=== PATIENT | male | born 1960 | race Caucasian/White ===

== ENCOUNTER 2018-08-18 19:23 | Emergency (ER) | payer BC ==
[~2018-08-18] VITALS: Ht 170.2 cm; Wt 90.7 kg
[~2018-08-18 19:23] MED LIST: Adult Low Dose81 MG PO; HYDCHL12.5 PO; METO25ER PO; PRAV20 PO
[2018-08-18] MEDS ORDERED: CYAN500 PO (20:30)
== END 2018-08-18 21:21 | disposition home or self-care (01) ==
LOC: ER 19:23
DX: S71.112A Laceration without foreign body, left thigh, initial encounter (principal); Z88.0 Allergy status to penicillin; Z79.899 Other long term (current) drug therapy; W22.8XXA Striking against or struck by other objects, initial encounter
CPT/HCPCS: 12032; 90471; 90714; 99282-25

== ENCOUNTER → 2018-11-08 | Outpatient (CLI) | payer BC ==
[~2018-11-08] MED LIST changes: +CYAN500 PO
== END | disposition home or self-care (01) ==
LOC: LAB SHORT 10:40 → LAB 10:40
DX: K30 Functional dyspepsia (principal)
CPT/HCPCS: 87338

== ENCOUNTER → 2019-07-06 | Outpatient (CLI) | payer BC | END | disposition home or self-care (01) | LOC: LAB SHORT 05:05 → LAB 05:05 → LAB FUT 07-05 17:10 | DX: R10.13 Epigastric pain (principal); R35.0 Frequency of micturition | CPT/HCPCS: 87338 ==

== ENCOUNTER 2021-01-07 15:42 | Day surgery (SDC) | payer BC ==
--- NOTE | 2021-01-07 17:18 | NUR ---
PT HAS NO ADVERSE SIGNS AFTER INFUSION .....
--- NOTE | 2021-01-07 18:02 | NUR ---
COMBINED NOTES: 1744 PT DOING VERY WELL, STATES THAT HE FEELS NO DIFFERENT THEN WHEN HE WALKED IN, PT HAD/HAS SLIGHT COUGH WHEN HE CAME IN. VSS, BIOX AT 93 -95% PT WAS GIVEN PEPSI, CRANBERRY JUICE AND NOW WATER
--- NOTE | 2021-01-07 18:06 | NUR ---
180: PT DRINKING WATER, NO S/S OF ADVERSE REACTION. PT CONTINUES TO HAVE SLIGHT COUGH, STATES HE FEELS FINE
--- NOTE | 2021-01-07 18:18 | NUR ---
PTS VSS, BIOXING AT 97%ON RA, PT DOES STATE THAT HE FEELS A LITTLE "TINGLING" IN HIS ARMS. PT AMBULATING TO BATHROOM
--- NOTE | 2021-01-07 18:31 | NUR ---
183: AMBULATED PT TO HIS VEHICLE. NO S/S OF ADVERSE. PT STATES THE TINGLING HAS WENT AWAY, AND THINKING HE MIGHT OF JUST BEEN COLD ENCOURAGED PT TO CALL 911 FOR ANY S/S OF INCREASED SOB, OR ANY OTHER ADVERSE REACTION. PT IS [place] AND [place]. HE STATED HE WOULD
== END 2021-01-07 23:34 | disposition home or self-care (01) ==
LOC: ATC 15:42
DX: U07.1 COVID-19 (principal); I10 Essential (primary) hypertension; E78.5 Hyperlipidemia, unspecified; I42.2 Other hypertrophic cardiomyopathy; E66.9 Obesity, unspecified; G47.33 Obstructive sleep apnea (adult) (pediatric); Z88.0 Allergy status to penicillin; Z99.89 Dependence on other enabling machines and devices
CPT/HCPCS: 96365; Q0243

== ENCOUNTER 2021-01-17 23:13 | Inpatient (IN) | payer BC ==
[~2021-01-17] VITALS: Ht 152.4 cm; Wt 98.4 kg
[2021-01-17 23:43] LABS: BASOPHILS ABSOLUTE AUTO 0.02 K/mm3 (0.00-0.23); BASOPHILS PERCENT AUTO 0 % (0-2); EOSINOPHILS ABSOLUTE AUTO 0.03 K/mm3 (0.00-0.68); EOSINOPHILS PERCENT AUTO 0 % (0-6); Hematocrit 42.3 % (37.0-53.0); Hemoglobin 14.3 g/dL (13.5-17.5); IMMATURE GRAN ABSOLUTE AUTO 0.06 K/mm3 (0.00-0.10); IMMATURE GRAN PERCENT AUTO 1 % (0-1); LYMPHOCYTES ABSOLUTE AUTO 0.96 K/mm3 (0.84-5.20); LYMPHOCYTES PERCENT AUTO 7 % (21-46); MONOCYTES ABSOLUTE AUTO 0.71 K/mm3 (0.16-1.47); MONOCYTES PERCENT AUTO 5 % (4-13); Mean Corpuscular HGB 30.8 pg (26.0-34.0); Mean Corpuscular HGB Conc 33.8 g/dL (31.5-36.5); Mean Corpuscular Volume 91 fL (80-100); Mean Platelet Volume 10.5 fL (9.1-12.4); NEUTROPHILS ABSOLUTE AUTO 11.47 K/mm3 (1.96-9.15); NEUTROPHILS PERCENT AUTO 87 % (41-73); Platelet Count 318 K/mm3 (150-400); RDW Coefficient Variation 12.1 % (11.7-14.2); RDW Standard Deviation 40.7 fL (35.1-46.3); Red Blood Cell Count 4.64 M/mm3 (4.30-5.90); White Blood Cell Count 13.25 K/mm3 (4.00-11.30)
[2021-01-18 00:03] LABS: Alanine Aminotransfer (ALT/SGP 41 U/L (12-78); Albumin, Blood 3.6 g/dL (3.4-5.0); Alk Phos 83 U/L (50-136); Anion Gap 6 mmol/L (6-16); Aspartate Aminotrans (AST/SGOT 19 U/L (12-37); Bilirubin, Total 0.4 mg/dL (0.1-1.0); Blood Urea Nitrogen 12 mg/dL (8-24); Bun/Creatinine Ratio 10.8 (12.0-20.0); CO2, Blood 27 mmol/L (21-32); Chloride, Blood 108 mmol/L (98-108); Creatinine, Blood 1.11 mg/dL (0.60-1.20); Globulin, Blood 3.6 g/dL (2.2-4.0); Glomerular Filtration Rate >60 (60-); Glucose, Blood 102 mg/dL (70-99); Potassium, Blood 3.9 mmol/L (3.5-5.5); Sodium, Blood 141 mmol/L (136-145); Total Protein, Blood 7.2 g/dL (6.4-8.2); Troponin I <0.015 ng/mL (0.000-0.040)
[2021-01-18 05:50] LABS: BASOPHILS PERCENT AUTO 0 % (0-2); EOSINOPHILS ABSOLUTE AUTO 0.03 K/mm3 (0.00-0.68); EOSINOPHILS PERCENT AUTO 0 % (0-6); Hematocrit 40.3 % (37.0-53.0); Hemoglobin 13.4 g/dL (13.5-17.5); IMMATURE GRAN ABSOLUTE AUTO 0.03 K/mm3 (0.00-0.10); IMMATURE GRAN PERCENT AUTO 0 % (0-1); LYMPHOCYTES ABSOLUTE AUTO 1.05 K/mm3 (0.84-5.20); LYMPHOCYTES PERCENT AUTO 14 % (21-46); MONOCYTES ABSOLUTE AUTO 0.58 K/mm3 (0.16-1.47); MONOCYTES PERCENT AUTO 8 % (4-13); Mean Corpuscular HGB 30.7 pg (26.0-34.0); Mean Corpuscular HGB Conc 33.3 g/dL (31.5-36.5); Mean Corpuscular Volume 92 fL (80-100); Mean Platelet Volume 10.5 fL (9.1-12.4); NEUTROPHILS ABSOLUTE AUTO 5.61 K/mm3 (1.96-9.15); NEUTROPHILS PERCENT AUTO 77 % (41-73); Platelet Count 301 K/mm3 (150-400); RDW Coefficient Variation 12.2 % (11.7-14.2); RDW Standard Deviation 41.9 fL (35.1-46.3); Red Blood Cell Count 4.37 M/mm3 (4.30-5.90)
[2021-01-18 06:13] LABS: Anion Gap 6 mmol/L (6-16); Blood Urea Nitrogen 12 mg/dL (8-24); Bun/Creatinine Ratio 12.5 (12.0-20.0); CO2, Blood 24 mmol/L (21-32); Calcium, Blood 8.3 mg/dL (8.5-10.1); Chloride, Blood 111 mmol/L (98-108); Creatinine, Blood 0.96 mg/dL (0.60-1.20); Glomerular Filtration Rate >60 (60-); Glucose, Blood 106 mg/dL (70-99); Sodium, Blood 141 mmol/L (136-145)
--- NOTE | 2021-01-18 07:32 | NUR ---
SHIFT SUMMARY S/P SBO, ADMITTED THIS SHIFT, TRANSFERRED TO BED INDEPENDENTLY, DENIES PAIN AT TIME OF ARRIVAL THOUGH MEDS ARE AVAILABLE, DENIES SOB, DENIES CP, NPO AT ADMIT, NG TO BE PLACED. NO ACUTE EVENTS THIS SHIFT. CALL LIGHT IN REACH, REPORT GIVEN TO DAY RN.
--- NOTE | 2021-01-18 15:20 | NUR ---
SHIFT SUMMARY: SBO PATIENT IS ALERT AND ORIENTED X4. VS ARE WNL AND IS ON RA. PATIENT DENIES NEEDING PAIN MEDICATIONS SO FAR IN THE SHIFT. PATIENT HAS ALREADY BEEN ABLE TO PASS SOME GAS AND HAD A BM THIS MORNING. HE REPORTS "I'M ALREADY FEELING BETTER!". HE IS OKAY TO HAVE SIPS AND CHIPS AT LEAST UNTIL TOMORROW. HE CALLS APPROPRIATELY. CALL LIGHT WITHIN REACH. THE PLAN IS TO SEE HOW HE IS DURING THE NIGHT AND THEN TO POSSIBLY ADVANCE DIET WHEN APPROPRIATE. DR. PATEL SAID IF HE WAS ABLE TO TOLERATE AN ADVANCED DIET HE WOULD POSSIBLY BE SENT HOME TOMORROW.
--- NOTE | 2021-01-19 06:32 | NUR ---
SHIFT SUMMARY S/P SBO, A/O X4, VSS, TOLERATING SIPS AND CHIPS AFTER CLEARED TO DO SO BY GENERAL SURGERY CONSULTATION YESTERDAY, SM BM YESTERDAY DURING DAY SHIFT, PT REPORTS PAIN DOING BETTER AND HAS DENIED THE NEED FOR ANY PAIN MEDICATION OTHER THAN TYLENOL FOR A HEADACHE. INDEPENDENT IN HIS ROOM, CONTINUES TO DENIE SOB AND CP. NO ACUTE EVENTS THIS SHIFT. CALL LIGHT IN REACH, WILL CTM AND REPORT TO ONCOMING DAY RN.
[2021-01-19 08:30] LABS: Hematocrit 45.9 % (37.0-53.0); Hemoglobin 15.2 g/dL (13.5-17.5); Mean Corpuscular HGB Conc 33.1 g/dL (31.5-36.5); Mean Corpuscular Volume 94 fL (80-100); Mean Platelet Volume 10.5 fL (9.1-12.4); Platelet Count 309 K/mm3 (150-400); RDW Coefficient Variation 12.1 % (11.7-14.2); RDW Standard Deviation 41.8 fL (35.1-46.3); White Blood Cell Count 7.48 K/mm3 (4.00-11.30)
[2021-01-19 08:48] LABS: Alanine Aminotransfer (ALT/SGP 37 U/L (12-78); Albumin, Blood 3.5 g/dL (3.4-5.0); Alk Phos 82 U/L (50-136); Anion Gap 4 mmol/L (6-16); Aspartate Aminotrans (AST/SGOT 22 U/L (12-37); Blood Urea Nitrogen 10 mg/dL (8-24); Bun/Creatinine Ratio 12.7 (12.0-20.0); CO2, Blood 24 mmol/L (21-32); Calcium, Blood 8.7 mg/dL (8.5-10.1); Chloride, Blood 110 mmol/L (98-108); Creatinine, Blood 0.79 mg/dL (0.60-1.20); Globulin, Blood 3.6 g/dL (2.2-4.0); Glomerular Filtration Rate >60 (60-); Glucose, Blood 82 mg/dL (70-99); Potassium, Blood 4.2 mmol/L (3.5-5.5); Sodium, Blood 138 mmol/L (136-145); Total Protein, Blood 7.1 g/dL (6.4-8.2)
--- NOTE | 2021-01-19 17:03 | NUR ---
SHIFT SUMMARY PT REPORTS THAT HE IS FEELING MUCH BETTER TODAY. HE HAD TWO GOOD SIZED BM'S AND IS CURRENTLY TOLERATING A CLEAR LIQUID DIET. NO C/O PAIN THIS SHIFT. ABD IS SOFT AND SLIGHTLY TENDER ON THE RIGHT SIDE. VSS. WILL POSSIBLY DC TOMORROW. WILL REPORT TO ONCOMING RN.
--- NOTE | 2021-01-20 05:17 | NUR ---
SHIFT SUMMARY S/P SBO, A/O X4, VSS, TOLERATING REGULAR DIET, DENIES PAIN T/O THE SHIFT, APPEARS EAGER TO DC LATER TODAY. NO ACUTE EVENTS THIS SHIFT. CALL LIGHT IN REACH, WILL CTM AND REPORT TO DAY RN.
--- NOTE | 2021-01-20 11:37 | NUR ---
DISCHARGE SUMMARY PT REPORTS FEELING MUCH BETTER TODAY AND READY TO GO HOME. NO C/O PAIN AND IS TOLERATING A REGULAR DIET WELL. IV DC'D WNL. VSS. EDUCATED ON SBO AND DIET OPTIONS. INSTRUCTED TO FOLLOW UP WITH SURGEON AND PCP IN 2 WEEKS. DC'D HOME AND PICKED UP BY FRIEND.
== END 2021-01-20 11:42 | disposition home or self-care (01) | DRG 389 ==
LOC: ER 23:13 → SURS 01-18 03:46
PROVIDERS: Family Medicine; Internal Medicine; Student in an Organized Health Care Education/Training Program; ADMIT Internal Medicine
DX: K56.609 Unspecified intestinal obstruction, unspecified as to partial versus complete obstruction (principal); I42.0 Dilated cardiomyopathy; D72.829 Elevated white blood cell count, unspecified; Z88.0 Allergy status to penicillin; Z86.16 Personal history of COVID-19; Z88.8 Allergy status to other drugs, medicaments and biological substances; Z79.82 Long term (current) use of aspirin; Z79.899 Other long term (current) drug therapy; Z98.890 Other specified postprocedural states; Z90.49 Acquired absence of other specified parts of digestive tract
CPT/HCPCS: 36415; 74177; 76705; 80048; 80053; 83605; 83690; 84484; 85025; 85027; 93005; 93010; 96361; 96374; 99285-25; A9270; J1650; J2270; J7030; Q9967

== ENCOUNTER 2021-08-28 08:50 | Day surgery (SDC) | payer BC ==
[~2021-08-28] VITALS: Ht 175.3 cm; Wt 95.2 kg
== END 2021-08-28 11:47 | disposition home or self-care (01) ==
LOC: ORSCSDS 08:50
PROVIDERS: Surgery
PROC: 0DJD8ZZ Inspection of Lower Intestinal Tract, Via Natural or Artificial Opening Endoscopic (ICD-10-PCS; principal; 2021-08-28 10:30)
DX: Z12.11 Encounter for screening for malignant neoplasm of colon (principal); Z86.010 Personal history of colon polyps; G47.33 Obstructive sleep apnea (adult) (pediatric); E66.9 Obesity, unspecified; Z68.31 Body mass index [BMI] 31.0-31.9, adult; Z79.82 Long term (current) use of aspirin; Z79.899 Other long term (current) drug therapy
CPT/HCPCS: J2704; J7120